=== PATIENT | male | born 1955 | race Caucasian/White ===

== ENCOUNTER → 2017-01-03 | Outpatient (REF) | payer OTHER ==
[~2017-01-03] MED LIST: ASPI81TA85 PO; ATOR1TAB19 PO; BENA25CA2 PO; PRIL20CA9 PO; VITA-115 PO
[2017-01-03 11:42] LABS: MEAN CORPUSCULAR HEMOGLOBIN 31.7 pg (27.0-33.0); MEAN CORPUSCULAR HGB CONC 33.7 g/dl (32.0-36.5); MEAN CORPUSCULAR VOLUME 94.2 fl (80.0-96.0); RED CELL DISTRIBUTION WIDTH 12.9 % (11.5-14.5)
[2017-01-03 12:03] LABS: ALBUMIN 4.2 GM/DL (3.2-5.2); ALBUMIN/GLOBULIN RATIO 1.11 (1.00-1.93); ALKALINE PHOSPHATASE 60 U/L (45-117); ALT/SGPT 23 U/L (12-78); ANION GAP 2 MEQ/L (8-16); AST/SGOT 14 U/L (15-37); BILIRUBIN,TOTAL 0.5 MG/DL (0.2-1.0); BLOOD UREA NITROGEN 21 MG/DL (7-18); CALCIUM LEVEL 9.6 MG/DL (8.8-10.2); CARBON DIOXIDE LEVEL 33 MEQ/L (21-32); CHLORIDE LEVEL 106 MEQ/L (98-107); CHOLESTEROL LEVEL 230 MG/DL (<200); CREATININE FOR GFR 1.15 MG/DL (0.70-1.30); GLOMERULAR FILTRATION RATE > 60.0 (>49); GLUCOSE, FASTING 104 MG/DL (80-110); SODIUM LEVEL 141 MEQ/L (136-145); TRIGLYCERIDES LEVEL 157 MG/DL (<150)
== END ==
LOC: M SFHCCLAY 08:27
PROVIDERS: ATTEND Family Medicine
DX: E78.00 Pure hypercholesterolemia, unspecified (principal); K21.9 Gastro-esophageal reflux disease without esophagitis

== ENCOUNTER → 2017-07-24 | Outpatient (CLI) | payer OTHER | LOC: M PAIN 13:15 | DX: G89.29 Other chronic pain (principal); G57.11 Meralgia paresthetica, right lower limb; R10.31 Right lower quadrant pain; E78.5 Hyperlipidemia, unspecified; I10 Essential (primary) hypertension; K21.9 Gastro-esophageal reflux disease without esophagitis; Z85.820 Personal history of malignant melanoma of skin; Z79.82 Long term (current) use of aspirin; Z79.899 Other long term (current) drug therapy | CPT/HCPCS: G0463 ==

== ENCOUNTER → 2018-09-16 | Outpatient (REF) | payer BC ==
[2018-09-16 12:08] LABS: ALBUMIN 4.3 GM/DL (3.2-5.2); ALT/SGPT 26 U/L (12-78); BILIRUBIN,TOTAL 0.6 MG/DL (0.2-1.0); BLOOD UREA NITROGEN 18 MG/DL (7-18); CALCIUM LEVEL 9.1 MG/DL (8.8-10.2); CARBON DIOXIDE LEVEL 28 MEQ/L (21-32); CHLORIDE LEVEL 105 MEQ/L (98-107); CHOLESTEROL LEVEL 242 MG/DL (<200); CHOLESTEROL RISK RATIO 5.041 (<5); GLOMERULAR FILTRATION RATE > 60.0 (>49); GLUCOSE, FASTING 103 MG/DL (70-100); HDL CHOLESTEROL 48 MG/DL (>40); LDL CHOLESTEROL 138 MG/DL (<100); NON-HDL-C 194 MG/DL; POTASSIUM SERUM 4.6 MEQ/L (3.5-5.1); SODIUM LEVEL 139 MEQ/L (136-145); TOTAL PROTEIN 7.9 GM/DL (6.4-8.2); TRIGLYCERIDES LEVEL 280 MG/DL (<150)
== END ==
LOC: M SFHCCLAY 08:40
PROVIDERS: ATTEND Family Medicine
DX: E78.00 Pure hypercholesterolemia, unspecified (principal); R03.0 Elevated blood-pressure reading, without diagnosis of hypertension

== ENCOUNTER → 2018-12-18 | Outpatient (REF) | payer BC ==
[2018-12-18 13:06] LABS: CHOLESTEROL RISK RATIO 4.333 (<5)
== END ==
LOC: M SFHCCLAY 08:50
PROVIDERS: ATTEND Family Medicine
DX: E78.00 Pure hypercholesterolemia, unspecified (principal)

== ENCOUNTER 2019-01-14 07:09 | Emergency (ER) | payer BC ==
[~2019-01-14] VITALS: Ht 182.9 cm; Wt 95.8 kg
[2019-01-14] MEDS ORDERED: NS 1,000 ML IV ONE (07:30)
[2019-01-14 08:01] LABS: BASO % 0.4 % (0.0-1.0); EOS % 0.7 % (0.0-3.0); HEMATOCRIT 47.2 % (42.0-52.0); HEMOGLOBIN 16.3 g/dl (13.5-17.5); LYMPH # 1.9 10^3/uL (1.5-4.5); LYMPH % 35.9 % (24.0-44.0); MEAN CORPUSCULAR HEMOGLOBIN 30.9 pg (27.0-33.0); MEAN CORPUSCULAR HGB CONC 34.5 g/dl (32.0-36.5); MEAN CORPUSCULAR VOLUME 89.6 fl (80.0-96.0); MONO # 1.1 10^3/uL (0.0-0.8); MONO % 20.1 % (0.0-5.0); NEUTROPHILS # 2.3 10^3/uL (1.8-7.7); NEUTROPHILS % 42.5 % (36.0-66.0); PLATELET COUNT, AUTOMATED 248 10^3/uL (150-450); RED BLOOD COUNT 5.27 10^6/uL (4.30-6.10); WHITE BLOOD COUNT 5.4 10^3/uL (4.0-10.0)
[2019-01-14] MEDS ORDERED: POTASSIUM CHLORIDE 10 MEQ SR TABLET PO ONE (08:15)
[2019-01-14 08:31] LABS: BILIRUBIN,DIRECT 0.2 MG/DL (0.0-0.2); BILIRUBIN,TOTAL 0.7 MG/DL (0.2-1.0); TOTAL PROTEIN 7.8 GM/DL (6.4-8.2)
[2019-01-14 09:45] VITALS: BP 132/84
[2019-01-14] MEDS ORDERED: ONDA4TAB6 PO (10:27)
== END 2019-01-14 10:35 | disposition home or self-care (01) ==
LOC: M ED 07:09
DX: R11.10 Vomiting, unspecified (principal); K80.20 Calculus of gallbladder without cholecystitis without obstruction; Z79.82 Long term (current) use of aspirin; Z79.899 Other long term (current) drug therapy

== ENCOUNTER → 2019-09-08 | Outpatient (REF) | payer MEDICARE ==
[~2019-09-08] MED LIST changes: +ONDA4TAB6 PO
== END ==
LOC: M SFHCCLAY 16:38
PROVIDERS: ATTEND Family Medicine
DX: E78.00 Pure hypercholesterolemia, unspecified (principal); I47.1 Supraventricular tachycardia; Z53.8 Procedure and treatment not carried out for other reasons

== ENCOUNTER → 2021-04-12 | Outpatient (CLI) | payer MEDICARE ==
[~2021-04-12] MED LIST changes: -ASPI81TA85 PO; +ASPI81TA86 PO
--- NOTE | 2021-04-17 10:37 | SLEEPCENT ---
DATE: 04/12/2021 ORDERED BY: BINDU Ragland Nocturnal polysomnography was performed for evaluation of sleep physiology in this patient with a history of excessive somnolence and nonrestorative sleep who has a comorbidity of hypotension. Six hours and 35 minutes of data were reviewed. There were 210.5 minutes of sleep identified. Sleep latency was prolonged at 40 minutes. REM latency was normal at 90 minutes. Sleep architecture was good with two REM cycles. Overall sleep efficiency was 54.4%. The electrocardiogram showed a sinus rhythm. Average heart rate of 68 beats per minute. EEG showed normal waveforms for wake and sleep. There were 24 respiratory events identified of 10 seconds in duration or greater for an apnea-hypopnea index of 6.8. The events were obstructive, not exclusive to sleep stage, more frequent but not exclusive to the supine posture. Arousals from respiratory events occurred 3.1 times per hour, and oxygen saturations remained 90%+. There was some mild limb activity and limb movement arousal index was 5.1. IMPRESSIONS: Mild obstructive sleep apnea syndrome (G47.33). Apnea-hypopnea index 6.8. RECOMMENDATION: Given the patient's symptoms, referral [facility] to [facility] for [facility] is recommended. In the interim, alcohol and sedative avoidance should be practiced and caution exercised during the operation of motor vehicles. cc: DIMITRIOS URIBE MD
== END ==
LOC: M SLEEP 20:00
PROVIDERS: ATTEND Nurse Practitioner Family
DX: G47.33 Obstructive sleep apnea (adult) (pediatric) (principal)

== ENCOUNTER → 2021-04-13 | Outpatient (REF) | payer MEDICARE ==
[2021-04-13 12:23] LABS: HEMATOCRIT 44.3 % (42.0-52.0); HEMOGLOBIN 14.7 g/dl (13.5-17.5); MEAN CORPUSCULAR HEMOGLOBIN 31.5 pg (27.0-33.0); MEAN CORPUSCULAR HGB CONC 33.2 g/dl (32.0-36.5); MEAN CORPUSCULAR VOLUME 94.9 fl (80.0-96.0); PLATELET COUNT, AUTOMATED 215 10^3/uL (150-450); RED BLOOD COUNT 4.67 10^6/uL (4.30-6.10); WHITE BLOOD COUNT 7.1 10^3/uL (4.0-10.0)
[2021-04-13 14:10] LABS: BLOOD UREA NITROGEN 22 MG/DL (7-18); CARBON DIOXIDE LEVEL 28 MEQ/L (21-32); CHLORIDE LEVEL 107 MEQ/L (98-107); CHOLESTEROL LEVEL 311 MG/DL (<200); CHOLESTEROL RISK RATIO 7.404 (<5); CREATININE FOR GFR 0.95 MG/DL (0.70-1.30); GLOMERULAR FILTRATION RATE > 60.0 (>49); GLUCOSE, FASTING 95 MG/DL (70-100); HDL CHOLESTEROL 42 MG/DL (>40); NON-HDL-C 269 MG/DL; POTASSIUM SERUM 4.2 MEQ/L (3.5-5.1); SODIUM LEVEL 139 MEQ/L (136-145); TRIGLYCERIDES LEVEL 486 MG/DL (<150)
== END ==
LOC: M LABDRAWC 11:43
PROVIDERS: ATTEND Internal Medicine Cardiovascular Disease
DX: I10 Essential (primary) hypertension (principal); E78.5 Hyperlipidemia, unspecified

== ENCOUNTER → 2021-06-06 | Outpatient (REF) | payer MEDICARE | LOC: M LAB REF 14:31 | PROVIDERS: ATTEND Physician Assistant | DX: C44.321 Squamous cell carcinoma of skin of nose (principal) | CPT/HCPCS: 11102; 88305; G0463 ==

== ENCOUNTER → 2023-03-20 | Outpatient (REF) | payer MEDICARE | LOC: M SFHCDERM 13:55 | PROVIDERS: ATTEND Physician Assistant | DX: D22.39 Melanocytic nevi of other parts of face (principal); L57.0 Actinic keratosis; C44.622 Squamous cell carcinoma of skin of right upper limb, including shoulder ==

== ENCOUNTER → 2023-05-16 | Outpatient (REF) | payer MEDICARE ==
[2023-05-16 18:21] LABS: ALKALINE PHOSPHATASE 66 U/L (46-116); ALT/SGPT 25 U/L (7.0-40); AST/SGOT 19 U/L (<34); BILIRUBIN,TOTAL 0.4 MG/DL (0.3-1.2); BLOOD UREA NITROGEN 24 MG/DL (9-23); CALCIUM LEVEL 9.4 MG/DL (8.3-10.6); CARBON DIOXIDE LEVEL 29 MMOL/L (20-31); CHLORIDE LEVEL 104 MMOL/L (98-107); CHOLESTEROL LEVEL 324 MG/DL (<200); CHOLESTEROL RISK RATIO 7.12 (<5); GLOMERULAR FILTRATION RATE > 60.0 (>49); GLUCOSE, FASTING 99 MG/DL (74-106); HDL CHOLESTEROL 45.5 MG/DL (>40); NON-HDL-C 278.5 MG/DL; POTASSIUM SERUM 5.2 MMOL/L (3.5-5.1); SODIUM LEVEL 139 MMOL/L (136-145); TOTAL PROTEIN 7.6 G/DL (5.7-8.2); TRIGLYCERIDES LEVEL 400 MG/DL (<150)
[2023-05-16 18:25] LABS: BASO # 0.1 10^3/uL (0.0-0.2); BASO % 0.6 % (0.0-1.0); EOS # 0.3 10^3/uL (0.0-0.5); EOS % 4.4 % (0.0-3.0); HEMATOCRIT 46.1 % (42.0-52.0); HEMOGLOBIN 15.1 g/dl (13.5-17.5); LYMPH # 3.5 10^3/uL (1.5-5.0); LYMPH % 45.2 % (24.0-44.0); MEAN CORPUSCULAR HEMOGLOBIN 31.1 pg (27.0-33.0); MEAN CORPUSCULAR HGB CONC 32.8 g/dl (32.0-36.5); MEAN CORPUSCULAR VOLUME 95.1 fl (80.0-96.0); MONO # 0.6 10^3/uL (0.0-0.8); MONO % 7.7 % (2.0-8.0); NEUTROPHILS # 3.3 10^3/uL (1.5-8.5); NEUTROPHILS % 41.8 % (36.0-66.0); PLATELET COUNT, AUTOMATED 255 10^3/uL (150-450); RED BLOOD COUNT 4.85 10^6/uL (4.30-6.10); THYROID STIMULATING HORMONE 2.073 uIU/ML (0.55-4.78); WHITE BLOOD COUNT 7.8 10^3/uL (4.0-10.0)
== END ==
LOC: M SFHCCLAY 11:38
PROVIDERS: ATTEND Family Medicine
DX: K86.1 Other chronic pancreatitis (principal); I10 Essential (primary) hypertension; L40.9 Psoriasis, unspecified; Z68.33 Body mass index [BMI] 33.0-33.9, adult

== ENCOUNTER → 2024-04-27 | Outpatient (REF) | payer MEDICARE ==
[~2024-04-27] MED LIST changes: +ONDA-282 PO; -ONDA4TAB6 PO
[2024-04-27 11:31] LABS: HEMATOCRIT 42.4 % (42.0-52.0); HEMOGLOBIN 14.3 g/dl (13.5-17.5); MEAN CORPUSCULAR HEMOGLOBIN 32.4 pg (27.0-33.0); MEAN CORPUSCULAR HGB CONC 33.7 g/dl (32.0-36.5); MEAN CORPUSCULAR VOLUME 95.9 fl (80.0-96.0); PLATELET COUNT, AUTOMATED 206 10^3/uL (150-450); RED BLOOD COUNT 4.42 10^6/uL (4.30-6.10); WHITE BLOOD COUNT 6.2 10^3/uL (4.0-10.0)
[2024-04-27 12:04] LABS: ALBUMIN 3.6 G/DL (3.2-5.2); ALKALINE PHOSPHATASE 71 U/L (46-116); ALT/SGPT 23 U/L (7.0-40); AST/SGOT 14 U/L (<34); BILIRUBIN,TOTAL 0.4 MG/DL (0.3-1.2); BLOOD UREA NITROGEN 28 MG/DL (9-23); CALCIUM LEVEL 9.2 MG/DL (8.3-10.6); CARBON DIOXIDE LEVEL 30 MMOL/L (20-31); CHLORIDE LEVEL 107 MMOL/L (98-107); CHOLESTEROL LEVEL 281 MG/DL (<200); CHOLESTEROL RISK RATIO 6.67 (<5); CREATININE FOR GFR 0.93 MG/DL (0.70-1.30); GLOMERULAR FILTRATION RATE > 60.0 (>49); GLUCOSE, FASTING 109 MG/DL (74-106); HDL CHOLESTEROL 42.1 MG/DL (>40); NON-HDL-C 238.9 MG/DL; POTASSIUM SERUM 4.5 MMOL/L (3.5-5.1); PSA SCREENING 0.59 NG/ML (< 4.00); SODIUM LEVEL 139 MMOL/L (136-145); TOTAL PROTEIN 7.1 G/DL (5.7-8.2); TRIGLYCERIDES LEVEL 511 MG/DL (<150)
== END ==
LOC: M SFHCCLAY 07:20
PROVIDERS: ATTEND Family Medicine
DX: E78.2 Mixed hyperlipidemia (principal); E78.00 Pure hypercholesterolemia, unspecified; Z12.5 Encounter for screening for malignant neoplasm of prostate
CPT/HCPCS: 80053; 80061; 85027; G0103

== ENCOUNTER → 2024-08-31 | Outpatient (CLI) | payer MEDICARE ==
[~2024-08-31] MED LIST changes: +PROHANCE 279.3MG/ML 15ML VIAL ONE; +PROHANCE 279.3MG/ML 5ML VIAL ONE
== END ==
LOC: M PLAIMG 11:46
PROVIDERS: ATTEND Otolaryngology
DX: H93.12 Tinnitus, left ear (principal)
CPT/HCPCS: 70553; A9576

== ENCOUNTER → 2025-01-10 | Outpatient (CLI) | payer MEDICARE ==
[~2025-01-10] MED LIST changes: -PROHANCE 279.3MG/ML 15ML VIAL ONE; -PROHANCE 279.3MG/ML 5ML VIAL ONE
== END ==
LOC: M CLY 10:34
PROVIDERS: ATTEND Family Medicine
DX: Z53.9 Procedure and treatment not carried out, unspecified reason (principal); M54.2 Cervicalgia; M54.12 Radiculopathy, cervical region

== ENCOUNTER → 2025-01-20 | Outpatient (REF) | payer MEDICARE | LOC: M SFHCDERM 17:49 | PROVIDERS: ATTEND Dermatology | DX: L57.0 Actinic keratosis (principal) ==

== ENCOUNTER → 2025-01-21 | Outpatient (CLI) | payer MEDICARE | LOC: M CLY 09:12 | PROVIDERS: ATTEND Family Medicine | DX: M47.22 Other spondylosis with radiculopathy, cervical region (principal); M48.02 Spinal stenosis, cervical region ==

== ENCOUNTER → 2025-03-16 | Outpatient (REF) | payer MEDICARE ==
[2025-03-16 13:36] LABS: CHOLESTEROL LEVEL 241.0 MG/DL (<200); CHOLESTEROL RISK RATIO 6.35 (<5); LDL CHOLESTEROL 147.5 MG/DL (<100); NON-HDL-C 203.1 MG/DL; TRIGLYCERIDES LEVEL 278.0 MG/DL (<150)
== END ==
LOC: M LABDRAWC 12:07
PROVIDERS: ATTEND Nurse Practitioner Family
DX: E78.00 Pure hypercholesterolemia, unspecified (principal)